=== PATIENT | female | born 1980 | race Caucasian/White ===

== ENCOUNTER 2018-12-31 18:50 | Inpatient (IN) | payer BC ==
[2018-12-31] MEDS ORDERED: SODIUM CHLORIDE 1,000 ML IV STA (19:01)
[2018-12-31] MEDS ORDERED: morphine CARPU-JECT 4 MG/1 ML DISP.SYRIN IVPUSH ONE (19:01)
--- NOTE | 2018-12-31 19:01 | PDOC ---
Rapid Medical Evaluation Chief Complaint: Pain, Acute Time Seen by Provider: 12/31/18 19:00 Medical Evaluation: Allergies Allergy/AdvReac Type Severity Reaction Status Date / Time No Known Allergies Allergy Verified 12/31/18 19:00 Vital Signs Temp Pulse Resp BP Pulse Ox 97.6 F 84 16 117/57 L 98 12/31/18 18:58 12/31/18 18:58 12/31/18 18:58 12/31/18 18:58 12/31/18 18:58 12/31/18 19:00 CC: right sided abd pain PE: RLQ tenderness Orders: labs, urine, CTAP Patient will proceed to the ER for further evaluation. Discharge Disposition - Diagnosis Abdominal pain - Discharge Dispostion Condition at time of disposition: Stable - Referrals - Patient Instructions - Post Discharge Activity
[2018-12-31] MEDS ORDERED: morphine SULFATE 4 MG/ML VIAL ONE (21:11)
[2018-12-31 21:18] LABS: BASO % 0.1 % (0-2.0); HEMATOCRIT 37.2 % (32.4-45.2); HEMOGLOBIN 12.2 GM/dL (10.7-15.3); LYMPH % 3.8 % (8-40); MCH 27.2 pg (25.7-33.7); MCHC 32.8 g/dl (32.0-36.0); MEAN PLT VOLUME 7.8 fl (7.5-11.1); MONO % 2.5 % (3.8-10.2); NEUT % 93.6 % (42.8-82.8); PLATELET COUNT 329 K/MM3 (134-434); RBC 4.48 M/mm3 (3.60-5.2); RDW 13.7 % (11.6-15.6); WHITE BLOOD COUNT 15.8 K/mm3 (4.0-10.0)
[2018-12-31 21:22] LABS: EPI CELLS 4.1 /HPF (0-5/HPF); HYALINE CASTS 1 /lpf (0-8); URINE APPEARANCE CLEAR; URINE BACTERIA 151.7 /hpf (NEGATIVE); URINE BILIRUBIN NEGATIVE (NEGATIVE); URINE COLOR YELLOW; URINE GLUCOSE (UA) NEGATIVE (NEGATIVE); URINE KETONE 2+ (NEGATIVE); URINE LEUK ESTERASE NEGATIVE (NEGATIVE); URINE NITRITE NEGATIVE (NEGATIVE); URINE PROTEIN NEGATIVE (NEGATIVE); URINE RBC 4 /hpf (0-4); URINE WBC 4 /hpf (0-5)
[2018-12-31 21:50] LABS: ALBUMIN 4.4 g/dl (3.4-5.0); BILIRUBIN,TOTAL 0.3 mg/dL (0.2-1); BLOOD UREA NITROGEN 11.2 mg/dL (7-18); CALCIUM 9.3 mg/dL (8.5-10.1); CREATININE 0.8 mg/dL (0.55-1.3); POTASSIUM 4.2 mmol/L (3.5-5.1); TOT PROT 8.6 g/dl (6.4-8.2)
[2018-12-31 21:54] LABS: INR 1.11 (0.83-1.09); PROTHROMBIN TIME (PATIENT) 13.1 SEC (9.7-13.0)
[2018-12-31 22:37] LABS: ANISOCYTOSIS 1+; MACROCYTOSIS 0; PLATELET ESTIMATE NORMAL
[2018-12-31] MEDS ORDERED: PIPERACILLIN/TAZOB 3.375 GM 3.375 GM in DEXTROSE 5%-WATER - 50 ML IVPB ONE (23:41)
[2018-12-31] MEDS ORDERED: PIPERACILLIN/TAZOB 3.375 GM 3.375 GM/50 ML BAG IVPB ONE (23:44)
[2018-12-31] MEDS ORDERED: ACETAMINOPHEN INJECTION 100 ML IVPB ONE (23:49)
[2018-12-31] MEDS ORDERED: KETOROLAC TROMETHAMINE 15 MG/ML VIAL ONE (23:50)
--- NOTE | 2018-12-31 23:55 | PDOC ---
Documentation entered by Andreea Iverson SCRIBE, acting as scribe for Cherelle Cm MD. Cherelle Cm MD: This documentation has been prepared by the Zayra francis Xhesika, SCRIBE, under my direction and personally reviewed by me in its entirety. I confirm that the documentation accurately reflects all work, treatment, procedures, and medical decision making performed by me. History of Present Illness - General Chief Complaint: Pain, Acute Stated Complaint: POSSIBLE APPENDICITIS Time Seen by Provider: 12/31/18 19:00 History Source: Patient Exam Limitations: No Limitations - History of Present Illness Initial Comments: 12/31/18 23:07 The patient is a 38 year old female with no significant PMH of who presents to the emergency department for sudden onset of right lower quadrant pain since 5pm. Patient notes her symptoms are associated with nausea and vomiting. The patient denies chest pain, shortness of breath, headache and dizziness. Denies fever, chills, cough, diarrhea and constipation. Denies dysuria, frequency, urgency and hematuria. Allergies: NKDA Past surgical history: 3 c-sections PCP: Dr. Johnson Past History - Past Medical History Allergies/Adverse Reactions: Allergies Allergy/AdvReac Type Severity Reaction Status Date / Time No Known Allergies Allergy Verified 12/31/18 19:00 COPD: No Thyroid Disease: Yes - Surgical History Cholecystectomy: No Lung Surgery: No - Immunization History Immunization Up to Date: No - Psycho Social/Smoking Cessation Hx Smoking History: Never smoked Have you smoked in the past 12 months: No Information on smoking cessation initiated: No Hx Alcohol Use: No Drug/Substance Use Hx: No Review of Systems - Review of Systems Able to Perform ROS?: Yes Comments:: 12/31/18 23:09 GENERAL/CONSTITUTIONAL: No fever or chills. No weakness. HEAD, EYES, EARS, NOSE AND THROAT: No change in vision. No ear pain or discharge. No sore throat. CARDIOVASCULAR: No chest pain or shortness of breath. RESPIRATORY: No cough, wheezing, or hemoptysis. GASTROINTESTINAL: + nausea, vomiting. no diarrhea or constipation. GENITOURINARY: No dysuria, frequency, or change in urination. MUSCULOSKELETAL: +right lower quadrant abdominal pain. No joint or muscle swelling. No neck or back pain. SKIN: No rash NEUROLOGIC: No headache, vertigo, loss of consciousness, or change in strength/ sensation. ENDOCRINE: No increased thirst. No abnormal weight change. HEMATOLOGIC/LYMPHATIC: No anemia, easy bleeding, or history of blood clots. ALLERGIC/IMMUNOLOGIC: No hives or skin allergy. *Physical Exam - Vital Signs Last Vital Signs Temp Pulse Resp BP Pulse Ox 97.6 F 84 16 117/57 L 98 12/31/18 18:58 12/31/18 18:58 12/31/18 18:58 12/31/18 18:58 12/31/18 18:58 - Physical Exam Comments: 12/31/18 23:10 GENERAL: Awake, alert, and fully oriented, in no acute distress HEAD: No signs of trauma EYES: PERRLA, EOMI, sclera anicteric, conjunctiva clear ENT: Auricles normal inspection, hearing grossly normal, nares patent, oropharynx clear without exudates. Moist mucosa NECK: Normal ROM, supple, no lymphadenopathy, JVD, or masses LUNGS: Breath sounds equal, clear to auscultation bilaterally. No wheezes, and no crackles HEART: Regular rate and rhythm, normal S1 and S2, no murmurs, rubs or gallops ABDOMEN: +RLQ TTP. Soft, nontender, normoactive bowel sounds. No guarding, no rebound. No masses EXTREMITIES: Normal range of motion, no edema. No clubbing or cyanosis. No cords, erythema, or tenderness NEUROLOGICAL: Cranial nerves II through XII grossly intact. Normal speech, normal gait SKIN: Warm, Dry, normal turgor, no rashes or lesions noted. ED Treatment Course - LABORATORY CBC & Chemistry Diagram: 12/31/18 21:09 12/31/18 21:09 - ADDITIONAL ORDERS Additional order review: Laboratory Results 12/31/18 12/31/18 12/31/18 21:09 21:09 21:09 PT with INR 13.10 H INR 1.11 H Sodium Potassium Chloride Carbon Dioxide Anion Gap BUN Creatinine Est GFR (CKD-EPI)AfAm Est GFR (CKD-EPI)NonAf Random Glucose Calcium Total Bilirubin AST ALT Alkaline Phosphatase Total Protein Albumin Lipase Urine Color Urine Appearance Urine pH Ur Specific Laporte Urine Protein Urine Glucose (UA) Urine Ketones Urine Blood Urine Nitrite Urine Bilirubin Urine Urobilinogen Ur Leukocyte Esterase Urine WBC (Auto) Urine RBC (Auto) Urine Casts (Auto) U Epithel Cells (Auto) Urine Bacteria (Auto) Urine HCG, Qual Negative Blood Type A POSITIVE Antibody Screen Negative 12/31/18 12/31/18 12/31/18 21:09 21:09 21:09 PT with INR INR Sodium 141 Potassium 4.2 Chloride 108 H Carbon Dioxide 26 Anion Gap 7 L BUN 11.2 Creatinine 0.8 Est GFR (CKD-EPI)AfAm 108.39 Est GFR (CKD-EPI)NonAf 93.52 Random Glucose 86 Calcium 9.3 Total Bilirubin 0.3 AST 8 L ALT 19 Alkaline Phosphatase 56 Total Protein 8.6 H Albumin 4.4 Lipase 98 Urine Color Yellow Urine Appearance Clear Urine pH 6.0 Ur Specific Laporte 1.014 Urine Protein Negative Urine Glucose (UA) Negative Urine Ketones 2+ H Urine Blood Trace Urine Nitrite Negative Urine Bilirubin Negative Urine Urobilinogen 1.0 Ur Leukocyte Esterase Negative Urine WBC (Auto) 4 Urine RBC (Auto) 4 Urine Casts (Auto) 1 U Epithel Cells (Auto) 4.1 Urine Bacteria (Auto) 151.7 Urine HCG, Qual Blood Type Antibody Screen 12/31/18 21:09 RBC 4.48 MCV 83.0 MCHC 32.8 RDW 13.7 MPV 7.8 Neutrophils % 93.6 H Lymphocytes % 3.8 L Monocytes % 2.5 L Eosinophils % 0.0 Basophils % 0.1 - Medications Given in the ED: ED Medications Discontinued Medications Generic Name Dose Route Start Last Admin Trade Name Freq PRN Reason Stop Dose Admin Sodium Chloride 1,000 mls @ 1,000 mls/hr 12/31/18 19:01 12/31/18 21:10 Normal Saline - IV 12/31/18 20:00 1,000 mls/hr ASDIR STA Administration Morphine Sulfate 4 mg 12/31/18 19:01 12/31/18 21:15 Morphine Injection - IVPUSH 12/31/18 19:02 4 mg ONCE ONE Administration Medical Decision Making - Medical Decision Making 12/31/18 23:45 Patient was given IV fluids and Zofran CAT scan of the abdomen pelvis with contrast shows a appendix that is fluid- filled and distended with enhancement of the wall measuring up to 11 mm in diameter there are mild adjacent inflammatory changes no free intraperitoneal air no acute vascular or osseous abnormalities the impression is an uncomplicated acute appendicitis Patient was given IV Zosyn for antibiotics PCP is Dr. Johnson 12/31/18 23:58 IMP Acute Appendicitis ADMIT med/surg 01/01/19 00:15 Dr Kilpatrick said to admit to his service Discharge - Discharge Information Problems reviewed: Yes Clinical Impression/Diagnosis: Abdominal pain Qualifiers: Abdominal location: right lower quadrant Qualified Code(s): R10.31 - Right lower quadrant pain Acute appendicitis Qualifiers: Acute appendicitis type: other Qualified Code(s): K35.890 - Other acute appendicitis without perforation or gangrene; K35.89 - Other acute appendicitis Condition: Stable - Admission Yes - Follow up/Referral Referrals: Ann Marie Johnson MD [Primary Care Provider] - - Patient Discharge Instructions - Post Discharge Activity
[2019-01-01] MEDS ORDERED: ONDANSETRON 4 MG/2 ML VIAL IVPUSH PRN ×3 (00:22→16:58)
[2019-01-01] MEDS ORDERED: MORPHINE SULFATE 2 MG/ML VIAL IVPUSH PRN (00:22)
--- NOTE | 2019-01-01 00:22 | HP ---
Admitting History and Physical - Admission Chief Complaint: abdominal pain RLQ History of Present Illness: 38 year old female oo significant PMH of who presents to the emergency department for sudden onset of right lower quadrant pain since 5pm. Patient notes her symptoms are associated with nausea and vomiting. She had a low grade fever as well and reports loss of appetitie since onset. She has 3 c- section via pfnstl, Ct shows acute appendicitis, we were called to intervene. History Source: Patient, Medical Record Limitations to Obtaining History: No Limitations - Past Surgical History Past Surgical History: Yes: (X3) - Smoking History Smoking history: Never smoked Have you smoked in the past 12 months: No - Alcohol/Substance Use Hx Alcohol Use: No History of Substance Use: reports: None - Social History ADL: Independent History of Recent Travel: Yes Home Medications - Allergies Allergies/Adverse Reactions: Allergies Allergy/AdvReac Type Severity Reaction Status Date / Time No Known Allergies Allergy Verified 12/31/18 19:00 - Home Medications Home Medications: Ambulatory Orders Levothyroxine Sodium [Levo-T] 50 mcg PO DAILY 01/01/19 Family Medical History Family History: Unremarkable Review of Systems - Review of Systems Constitutional: reports: Fever, Loss of Appetite. denies: Chills Eyes: denies: Blind Spots, Blurred Vision HENT: denies: Difficult Swallowing, Ear Discharge Neck: denies: Decreased ROM, Pain on Movement Cardiovascular: denies: Chest Pain, Palpitations Respiratory: denies: Cough, SOB Gastrointestinal: reports: Abdominal Pain. denies: Nausea, Vomiting Genitourinary: denies: Discharge, Dysuria Breasts: reports: No Symptoms Reported. denies: Pain, Skin Changes Musculoskeletal: denies: Decreased ROM, Joint Swelling, Muscle Pain Integumentary: denies: Lesions, Lump Neurological: denies: Seizure Endocrine: denies: Excessive Sweating, Unexplained Weight Gain, Unexplained Weight Loss Hematology/Lymphatic: denies: Easily Bruised, Excessive Bleeding Psychiatric: denies: Anxiety, Depression Physical Examination Vital Signs: Vital Signs Temperature 97.6 F 12/31/18 18:58 Pulse Rate 84 12/31/18 18:58 Respiratory Rate 16 12/31/18 18:58 Blood Pressure 117/57 L 12/31/18 18:58 O2 Sat by Pulse Oximetry (%) 98 10/22/19 18:58 Constitutional: Yes: Well Nourished, No Distress, Calm, Obese Eyes: Yes: Conjunctiva Clear, EOM Intact HENT: Yes: Atraumatic, Normocephalic Neck: Yes: Supple, Trachea Midline Cardiovascular: Yes: Regular Rate and Rhythm, S1, S2 Respiratory: Yes: Regular, CTA Bilaterally Gastrointestinal: Yes: Normal Bowel Sounds, Soft, Abdomen, Obese, Tenderness ( RLQ), Tenderness, Rebound. No: Tenderness, Epigastrium, Vomiting ...Rectal Exam: Yes: Deferred Renal/: No: CVA Tenderness - Left, CVA Tenderness - Right Breast(s): No: Mass, Skin Changes Musculoskeletal: No: Muscle Pain, Muscle Weakness Extremities: No: Cool, Cyanosis Edema: No Peripheral Pulses WNL: Yes Peripheral Pulses: Left Radial: 2+, Right Radial: 2+, Left Doralis Pedis: 2+, Right Dorsalis Pedis: 2+, Left Femoral: 2+, Right Femoral: 2+ Neurological: Yes: Alert, Oriented Psychiatric: Yes: Alert, Oriented Labs: CBC, BMP 12/31/18 21:09 12/31/18 21:09 Imaging - Results Cat Scan: Report Reviewed, Image Reviewed Problem List - Problems (1) Acute appendicitis Assessment/Plan: 38 yo female no significant PMH Admit for 23hour sat NPO and IVF hydration IV antibiotic ID consult Discussed with patient risks, benefits and alternatives of laparoscopic possible open appendectomy, including but not limited to bleeding, infection, injury to adjacent structures, leak or injury, intraabdominal abscess, incisional hernia, need for further procedures, ; alternatives include antibiotics, delayed or no surgery - risks of this include failure of nonoperative therapy, perforation, sepsis, recurrence, . Patient desires to proceed with operation - will take to OR for above. Informed consent signed for same. Problems reviewed: Yes Code(s): K35.80 - UNSPECIFIED ACUTE APPENDICITIS Qualifiers: Acute appendicitis type: with localized peritonitis Appendicitis gangrene presence: without gangrene Appendicitis perforation presence: without perforation Appendicitis abscess presence: without abscess Qualified Code(s) : K35.30 - Acute appendicitis with localized peritonitis, without perforation or gangrene (2) Abdominal pain in female Problems reviewed: Yes Code(s): R10.9 - UNSPECIFIED ABDOMINAL PAIN (3) Leukocytosis Problems reviewed: Yes Code(s): D72.829 - ELEVATED WHITE BLOOD CELL COUNT, UNSPECIFIED (4) RLQ abdominal pain Problems reviewed: Yes Code(s): R10.31 - RIGHT LOWER QUADRANT PAIN
--- NOTE | 2019-01-01 00:22 | OP ---
Operative Note - Note: Operative Date: 01/01/19 Pre-Operative Diagnosis: acute appendicitis Operation: laparoscopic appendectomy Findings: inflamed appendix. Post-Operative Diagnosis: Same as Pre-op Surgeon: Vel Kilpatrick Anesthesiologist/ASSOCIATE PROFESSOR PHYSICIAN: Elizabeth Goodman Anesthesia: General, Local (0.5% marcaine 10ml) Specimens Removed: appendix Estimated Blood Loss (mls): 5 Drains, Volume Out (mls): 500 (tolentino) Fluid Volume Replaced (mls): 800 Operative Report Dictated: Yes
[2019-01-01] MEDS ORDERED: LACTATED RINGERS SOLUTION 1,000 ML IV SCH ×2 (00:30→14:15)
[2019-01-01] MEDS ORDERED: PIPERACILLIN/TAZOB 3.375 GM 3.375 GM in DEXTROSE 5%-WATER - 50 ML IVPB ONE (00:45)
[2019-01-01] MEDS: LACTATED RINGERS SOLUTION 1,000 ML/1,000 ML INFUS.BAG IV SCH ×2 (01:09→09:46)
[2019-01-01 04:36] VITALS: BMI 29.9
[2019-01-01] MEDS ORDERED: PIPERACILLIN/TAZOBACTAM 2.25 GM VIAL IVPB ONE (08:47)
[2019-01-01] MEDS ORDERED: DEXTROSE 5%-WATER - 50 ML IVPB ONE ×3 (08:47→17:52)
[2019-01-01] MEDS ORDERED: PIPERACILLIN/TAZOB 2.25 GM 2.25 GM in DEXTROSE 5%-WATER - 50 ML IVPB SCH (09:00)
--- NOTE | 2019-01-01 11:54 | CON.ID ---
Consult Consult Specialty:: infectious diseases Referred by:: Reason for Consultation:: surgical prphylaxis,appendicitis - History of Present Illness Chief Complaint: abd pain History of Present Illness: 8 year old female oo significant PMH of who presents to the emergency department for sudden onset of right lower quadrant pain since 5pm. Patient notes her symptoms are associated with nausea and vomiting. She had a low grade fever as well and reports loss of appetitie since onset. She has 3 c- section via pfnstl, patient was worked up and found to [facility] appendicitis surgery saw the patient and the patient is going to the operating room for appendectomy - History Source History Provided By: Patient Limitations to Obtaining History: No Limitations - Past Surgical History Past Surgical History: Yes: (X3) - Alcohol/Substance Use Hx Alcohol Use: No History of Substance Use: reports: None - Smoking History Smoking history: Never smoked Have you smoked in the past 12 months: No - Social History ADL: Independent History of Recent Travel: Yes Home Medications - Allergies Allergies/Adverse Reactions: Allergies Allergy/AdvReac Type Severity Reaction Status Date / Time No Known Allergies Allergy Verified 12/31/18 19:00 - Home Medications Home Medications: Ambulatory Orders Amox-Tr/K Cl [Augmentin - 875Mg Tablet] 1 tab PO BID #14 tablet 01/01/19 Levothyroxine Sodium [Levo-T] 50 mcg PO DAILY 01/01/19 Oxycodone HCl/Acetaminophen [Percocet 5/325 -] 1 tab PO Q6H #40 tab MDD 4 Review of Systems - Review of Systems Constitutional: reports: No Symptoms Eyes: reports: No Symptoms HENT: reports: No Symptoms Neck: reports: No Symptoms Cardiovascular: reports: No Symptoms Respiratory: reports: No Symptoms Gastrointestinal: reports: Abdominal Pain Genitourinary: reports: No Symptoms Musculoskeletal: reports: No Symptoms Integumentary: reports: No Symptoms Neurological: reports: No Symptoms Endocrine: reports: No Symptoms Hematology/Lymphatic: reports: No Symptoms Psychiatric: reports: No Symptoms Physical Exam Vital Signs: Vital Signs Temperature 97.8 F 01/01/19 09:38 Pulse Rate 71 01/01/19 09:38 Respiratory Rate 16 01/01/19 09:38 Blood Pressure 109/66 01/01/19 09:38 O2 Sat by Pulse Oximetry (%) 100 01/01/19 09:00 Constitutional: Yes: Well Nourished, Calm, Mild Distress Eyes: Yes: Conjunctiva Clear Neck: Yes: Supple, Trachea Midline Cardiovascular: Yes: Regular Rate and Rhythm Respiratory: Yes: Regular, CTA Bilaterally Gastrointestinal: Yes: Soft, Tenderness (rlq) Musculoskeletal: Yes: WNL Extremities: Yes: WNL Neurological: Yes: Alert, Oriented Psychiatric: Yes: Alert, Oriented Labs: CBC, BMP 12/31/18 21:09 12/31/18 21:09 Imaging - Results Cat Scan: Report Reviewed, Image Reviewed Assessment/Plan Problem List - Problems (1) Acute appendicitis Problems reviewed: Yes Code(s): K35.80 - UNSPECIFIED ACUTE APPENDICITIS Qualifiers: Acute appendicitis type: with localized peritonitis Appendicitis gangrene presence: without gangrene Appendicitis perforation presence: without perforation Appendicitis abscess presence: without abscess Qualified Code(s) : K35.30 - Acute appendicitis with localized peritonitis, without perforation or gangrene (2) Abdominal pain in female Problems reviewed: Yes Code(s): R10.9 - UNSPECIFIED ABDOMINAL PAIN (3) Leukocytosis Problems reviewed: Yes Code(s): D72.829 - ELEVATED WHITE BLOOD CELL COUNT, UNSPECIFIED (4) RLQ abdominal pain Problems reviewed: Yes Code(s): R10.31 - RIGHT LOWER QUADRANT PAIN plan for surgery continue abx rest as per the team hydration
[2019-01-01] MEDS ORDERED: PIPERACILLIN/TAZOB 3.375 GM 3.375 GM in DEXTROSE 5%-WATER - 50 ML IVPB SCH ×2 (12:00→18:00)
[2019-01-01] MEDS: PIPERACILLIN/TAZOB 2.25 GM 2.25 GM in DEXTROSE 5%-WATER - 50 ML IVPB SCH (12:05)
[2019-01-01] MEDS ORDERED: PIPERACILLIN/TAZOBACTAM 3.375 GM VIAL IVPB ONE ×2 (12:08→17:51)
[2019-01-01] MEDS ORDERED: oxyCODONE HCL 5 MG TABLET PO PRN ×2 (14:13)
[2019-01-01] MEDS ORDERED: MIDAZOLAM HCL 2 MG/2 ML SINGLE DOSE VIAL ONE (14:15)
[2019-01-01] MEDS ORDERED: PROPOFOL 20 ML ONE ×2 (14:15→14:29)
[2019-01-01] MEDS ORDERED: LIDOCAINE HCL/PF 2% SDV 5ML VIAL ONE (14:15)
[2019-01-01] MEDS ORDERED: ACETAMINOPHEN 1000 MG/100 ML VIAL (NON FORMULARY) IVPB ONE ×3 (14:15→16:30)
[2019-01-01] MEDS ORDERED: ROCURONIUM BROMIDE 50 MG/5 ML SYRINGE ONE (14:15)
[2019-01-01] MEDS ORDERED: DEXAMETHASONE SOD PHOSPHATE 4 MG/1 ML VIAL ONE (14:40)
[2019-01-01] MEDS ORDERED: NEOSTIGMINE METHYLSULFATE 0.5 MG/ML - 10 ML MDV ONE (14:47)
[2019-01-01] MEDS ORDERED: GLYCOPYRROLATE 0.2 MG/1 ML VIAL ONE ×2 (14:47→14:51)
[2019-01-01] MEDS ORDERED: BUPIVACAINE HCL/PF 0.5% (5 MG/ML) 30 ML VIAL IJ ONE (14:54)
[2019-01-01] MEDS ORDERED: ACETAMINOPHEN INJECTION 100 ML IVPB ONE (16:27)
[2019-01-01] MEDS: LACTATED RINGERS SOLUTION 1,000 ML IV SCH (17:56)
[2019-01-01] MEDS: PIPERACILLIN/TAZOB 3.375 GM 3.375 GM in DEXTROSE 5%-WATER - 50 ML IVPB SCH (18:01)
[2019-01-01] MEDS: MORPHINE SULFATE 2 MG/ML VIAL IVPUSH PRN ×2 (18:06→22:35)
[2019-01-02] MEDS: LACTATED RINGERS SOLUTION 1,000 ML IV SCH (00:33)
[2019-01-02] MEDS ORDERED: PIPERACILLIN/TAZOBACTAM 3.375 GM VIAL IVPB ONE ×2 (00:39→09:02)
[2019-01-02] MEDS ORDERED: DEXTROSE 5%-WATER - 50 ML IVPB ONE ×2 (00:39→09:02)
[2019-01-02] MEDS: PIPERACILLIN/TAZOB 3.375 GM 3.375 GM in DEXTROSE 5%-WATER - 50 ML IVPB SCH ×2 (02:41→09:24)
--- NOTE | 2019-01-02 02:52 | DS ---
Physical Examination Vital Signs: Vital Signs Temperature 98.8 F 01/02/19 02:00 Pulse Rate 69 01/02/19 02:00 Respiratory Rate 15 01/02/19 02:00 Blood Pressure 104/45 L 01/02/19 02:00 O2 Sat by Pulse Oximetry (%) 100 01/01/19 21:56 Findings/Remarks: stable postoperatively, tolerating diet. voiding Constitutional: Yes: Well Nourished, No Distress, Calm Eyes: Yes: Conjunctiva Clear, EOM Intact HENT: Yes: Atraumatic, Normocephalic Neck: Yes: Supple, Trachea Midline Cardiovascular: Yes: Regular Rate and Rhythm, S1, S2 Gastrointestinal: Yes: Normal Bowel Sounds, Soft ...Rectal Exam: Yes: Deferred Wound/Incision: Yes: Clean/Dry, Well Approximated, Open to air Neurological: Yes: Alert, Oriented Psychiatric: Yes: Alert, Oriented Labs: CBC, BMP 12/31/18 21:09 12/31/18 21:09 Discharge Summary Problems reviewed: Yes Reason For Visit: ACUTE APPENDICITIS Current Active Problems Abdominal pain (Acute) Abdominal pain in female (Acute) Acute appendicitis (Acute) Leukocytosis (Acute) RLQ abdominal pain (Acute) Procedures: Principal: laparoscopic appendectomy Hospital Course: admitted for an emergency surgical procedure. uneventful surgery, stable for discharge home Condition: Improved - Instructions Diet, Activity, Other Instructions: Postoperative instructions: You had a laparoscopic appendectomy on 01/01/[address] eVl Kilpatrick of [facility]. Activity: Resume your usual activities gradually, but no heavy exertion or lifting more than 10-15 pounds for 1 month. You may shower daily starting then, just pat the incision areas dry. No bath or swimming until skin incisions have healed. Eat lightly at first, but advance to your usual diet as tolerated. Pain: For pain, you may use and alternate Tylenol (acetaminophen) 1-2 pills and/ or ibuprofen 200 mg (1-3 pills) every 6 hours each as needed; this means that you can take one OR the other at 3-hour intervals. If you are prescribed a Tylenol/narcotic combination for severe pain, use it instead of plain Tylenol as needed and switch back when your pain starts decreasing. Do not take more than 4000mg of acetaminophen in a day. Take medications as prescribed or indicated on the labeling. Follow-up: Call Dr. Kilpatrick' office at [phone] to make your postop appointment (Sunday in approximately 2 weeks after surgery). Clinic is held in the Diagnostic Center on the first floor of [facility]. Call the office if you have: * increasing pain not responsive to pain medication * fever of 101F or higher * vomiting * unusual or increasing bleeding or drainage from wounds * increasing redness or swelling at wound sites * inability to urinate Also, see your primary medical doctor within 1-2 weeks. Referrals: Ann Marie Johnson MD [Primary Care Provider] - Disposition: HOME - Home Medications Comprehensive Discharge Medication List: Ambulatory Orders Amox-Tr/K Cl [Augmentin - 875Mg Tablet] 1 tab PO BID #14 tablet 01/01/19 Levothyroxine Sodium [Levo-T] 50 mcg PO DAILY 01/01/19 Oxycodone HCl/Acetaminophen [Percocet 5/325 -] 1 tab PO Q6H #40 tab MDD 4 Prescription Drug Monitoring Program (I-STOP) results: I-STOP reviewed and no issues identified
[2019-01-02] MEDS: MORPHINE SULFATE 2 MG/ML VIAL IVPUSH PRN (05:49)
[2019-01-02 08:15] LABS: INR 1.26 (0.83-1.09); PROTHROMBIN TIME (PATIENT) 14.9 SEC (9.7-13.0)
[2019-01-02 08:17] LABS: HEMATOCRIT 30.3 % (32.4-45.2); HEMOGLOBIN 10.2 GM/dL (10.7-15.3); MCH 27.8 pg (25.7-33.7); MCHC 33.7 g/dl (32.0-36.0); MEAN CELL VOLUME 82.4 fl (80-96); PLATELET COUNT 291 K/MM3 (134-434); RBC 3.67 M/mm3 (3.60-5.2); RDW 13.8 % (11.6-15.6); WHITE BLOOD COUNT 6.9 K/mm3 (4.0-10.0)
--- NOTE | 2019-01-02 09:05 | OP ---
DATE OF OPERATION: 01/01/2019 PREOPERATIVE DIAGNOSIS: Acute appendicitis. POSTOPERATIVE DIAGNOSIS: Acute appendicitis. PROCEDURE: Laparoscopic appendectomy. ATTENDING SURGEON: Vel Kilpatrick MD SHIATSU THERAPIST: No one. ANESTHESIOLOGIST: JO Catalan ANESTHESIA TYPE: General with local. Local consisted of 0.5% Marcaine, a total of 10 mL given at the port sites. ESTIMATED BLOOD LOSS: 5 mL. INTRAVENOUS FLUID ADMINISTERED: 800 mL. URINE OUTPUT: 500 mL from the Walker which was removed postoperatively. SPECIMENS: Appendix. BRIEF FINDINGS: Patient had an inflamed appendix, taken at the termination of the tenia coli with an Endo PRASHANT stapler. INDICATION: Patient presented with acute abdominal pain in the right lower quadrant for [address] confirmed the presence of acute appendicitis. She was counseled regarding risks, benefits, and alternatives to surgical laparoscopic appendectomy, signed informed consent, was taken for the procedure. DESCRIPTION OF PROCEDURE: Patient was brought to the operating room, placed in supine position on the operating table. Lower extremities had SCDs placed to compression. Patient was induced with general anesthesia, endotracheally intubated without incident by Dr. Goodman. Patient received intravenous antibiotics prior to the start of surgery. We began first with a formal timeout, identifying the operative site and procedure with all parties in agreement. We began first with a supraumbilical approach with Cheikh entry to the abdomen. It was incised with a 15-blade scalpel, deepened and widened through the subcutaneous tissue, and this was after sterile prep and drape of the anterior abdominal wall. The anterior abdominal fascia was then elevated into the field, and blunt entry was made into the abdomen. After entering the abdomen, we were able to first place an ablative 0 Vicryl stitch across in a [id number] fashion. A 12-mm Cheikh entry port was then placed in the abdomen, and pneumoperitoneum was established to 15 mmHg. After completing the pneumoperitoneum, 2 additional operative port sites were placed in the suprapubic position and the left lower quadrant; 5-mm trocars were introduced under direct visualization after a cherise in the skin. With this in place, the appendix was immediately identified in the right lower quadrant and grasped mid body. The LigaSure device was used on the mesoappendix to take it down to the base at the cecum at the termination of the tenia coli. The mesoappendix was dissected in its entirety. At which point, the camera was re-sited to the left lower quadrant. An Endo PRASHANT size 60 mm stapler was then used to transect the base of the appendix at the cecum. There was minimal bloody effluent. The trocars were removed under direct visualization as was the appendix in a 10-mm Endo Catch bag from the umbilical port. The patient was awoken from general anesthesia after relieving the pneumoperitoneum and ablating the Cheikh entry port. The skin was then cleaned and closed using 4-0 Vicryl in interrupted fashion at all of the port sites including the Cheikh entry which was in subcuticular fashion, and Dermabond was placed as a dressing. Patient was stable throughout the surgery. All counts were correct. She was returned to recovery in stable condition, was extubated in the operating room. MD EZEKIEL Juarez/[id number]
[2019-01-02 10:57] VITALS: BP 100/70; PULSE 67; TEMP 97.8
--- NOTE | 2019-01-02 11:02 | PN ---
Progress Note, Physician History of Present Illness: doing well no complains some pain at the operated site - Current Medication List Current Medications: Active Medications Lactated Ringer's (Lactated Ringers Solution) 1,000 mls @ 125 mls/hr IV ASDIR LISSA Last Admin: 01/02/19 00:33 Dose: 125 mls/hr Piperacillin Sod/Tazobactam (Sod 3.375 gm/ Dextrose) 50 mls @ 100 mls/hr IVPB Q8H-IV LISSA; Protocol Last Admin: 01/02/19 09:24 Dose: 100 mls/hr Morphine Sulfate (Morphine Sulfate) 4 mg IVPUSH Q4H PRN PRN Reason: PAIN LEVEL 7 - 10 Last Admin: 01/02/19 05:49 Dose: 4 mg Ondansetron HCl (Zofran Injection) 4 mg IVPUSH Q6H PRN PRN Reason: NAUSEA - Objective Vital Signs: Vital Signs Temperature 97.8 F 01/02/19 10:57 Pulse Rate 67 01/02/19 10:57 Respiratory Rate 17 01/02/19 10:57 Blood Pressure 100/70 01/02/19 10:57 O2 Sat by Pulse Oximetry (%) 100 01/02/19 09:00 Constitutional: Yes: Calm, Mild Distress Cardiovascular: Yes: Regular Rate and Rhythm Respiratory: Yes: Regular, CTA Bilaterally Gastrointestinal: Yes: Soft, Hypoactive Bowel Sounds Musculoskeletal: Yes: WNL Extremities: Yes: WNL Wound/Incision: Yes: Clean/Dry Neurological: Yes: Alert, Oriented Psychiatric: Yes: Alert, Oriented Labs: CBC, BMP 01/02/19 06:45 12/31/18 21:09 INR, PTT INR 1.26 (0.83-1.09) H 01/02/19 06:45 Assessment/Plan Problem List - Problems (1) Acute appendicitis Problems reviewed: Yes Code(s): K35.80 - UNSPECIFIED ACUTE APPENDICITIS Qualifiers: Acute appendicitis type: with localized peritonitis Appendicitis gangrene presence: without gangrene Appendicitis perforation presence: without perforation Appendicitis abscess presence: without abscess Qualified Code(s) : K35.30 - Acute appendicitis with localized peritonitis, without perforation or gangrene (2) Abdominal pain in female Problems reviewed: Yes Code(s): R10.9 - UNSPECIFIED ABDOMINAL PAIN (3) Leukocytosis Problems reviewed: Yes Code(s): D72.829 - ELEVATED WHITE BLOOD CELL COUNT, UNSPECIFIED (4) RLQ abdominal pain Problems reviewed: Yes Code(s): R10.31 - RIGHT LOWER QUADRANT PAIN plan can stop all abx diet as per surgical team
--- NOTE | 2019-01-06 17:34 | PATH ---
Surgical Pathology Report Patient Name: BHARATHI MENDIOLA [facility]. Rec. #: [id number] /Age/Gender: 1980 (Age: 38) / F Account: [id number] Location: [address] [place] [address] Taken: 01/01/2019 Received: 01/02/2019 Reported: 01/06/2019 Physicians: Vel Kilpatrick M.D. Specimen(s) Received APPENDIX Clinical History Acute appendicitis Final Diagnosis APPENDIX, APPENDECTOMY: ACUTE APPENDICITIS AND PERIAPPENDICITIS. Electronically Signed Misbah Stinson M.D. Gross Description Received in formalin, labeled "appendix," is a 6.5 cm. in length vermiform appendix with a stapled margin of resection and moderate attached fat. The serosa is choi-pink and smooth. Sectioning reveals a focal possibly occluded lumen. The wall of the appendix averages 0.1 cm. in thickness. Media Account Executive sections are submitted in one cassette. /01/02/2019 saudi/01/02/2019
== END 2019-01-02 15:06 | disposition home or self-care (01) | DRG 343 ==
LOC: JER 18:50 → JERBED 01-01 00:24 → J6S 01-01 03:14
PROC: 0DTJ4ZZ Resection of Appendix, Percutaneous Endoscopic Approach (ICD-10-PCS; principal; 2019-01-01 14:45)
DX: K35.80 Unspecified acute appendicitis (principal); D72.829 Elevated white blood cell count, unspecified; R10.31 Right lower quadrant pain; E66.9 Obesity, unspecified; Z68.30 Body mass index [BMI] 30.0-30.9, adult
CPT/HCPCS: 36415; 74177-TC; 80053; 81003; 83690; 84703; 85025; 85027; 85610; 86850; 86900; 86901; 87086; 88304-TC; 94760; 97116-GP; 97161-GP; 99284-25; J0131; J7030

== ENCOUNTER 2022-07-03 04:17 | Day surgery (SDC) | payer BC ==
[2022-06-30 09:56] VITALS: BMI 31.6
[2022-07-03] MEDS ORDERED: PHENAZOPYRIDINE HCL 100 MG TABLET (FP) ONE (06:29)
[2022-07-03] MEDS ORDERED: GABAPENTIN 300 MG CAPSULE ONE (06:29)
[2022-07-03] MEDS ORDERED: ACETAMINOPHEN 1000 MG/100 ML BAG IVPB ONE (06:30)
[2022-07-03] MEDS ORDERED: GABAPENTIN 300 MG CAPSULE PO ONE (06:30)
[2022-07-03] MEDS ORDERED: PHENAZOPYRIDINE HCL 100 MG TABLET (FP) PO ONE (06:30)
[2022-07-03] MEDS ORDERED: CEFAZOLIN 2 GM in DEXTROSE 5%-WATER - 100 ML IVPB ONE (06:30)
[2022-07-03] MEDS ORDERED: ceFAZolin SODIUM 1 GM VIAL ONE (06:30)
[2022-07-03] MEDS ORDERED: KETAMINE HCL 500 MG/10 ML VIAL ONE (07:09)
[2022-07-03] MEDS ORDERED: MIDAZOLAM HCL 2 MG/2 ML SINGLE DOSE VIAL ONE (07:09)
[2022-07-03] MEDS ORDERED: PROPOFOL 40 ML ONE ×2 (07:10→08:20)
[2022-07-03] MEDS ORDERED: SUCCINYLCHOLINE CHLORIDE 200 MG/10 ML SYRINGE ONE ×2 (07:10→08:20)
[2022-07-03] MEDS ORDERED: TRANEXAMIC ACID 1000 MG/10 ML VIAL IVPUSH ONE (07:30)
[2022-07-03] MEDS ORDERED: ACETAMINOPHEN INJECTION 100 ML IVPB ONE (08:00)
[2022-07-03] MEDS ORDERED: ceFAZolin SODIUM 1 GM VIAL IVPB ONE (08:03)
[2022-07-03] MEDS ORDERED: ROCURONIUM BROMIDE 50 MG/5 ML SYRINGE ONE (08:20)
[2022-07-03] MEDS ORDERED: BISACODYL 5 MG TABLET.DR (FP) PO PRN (09:58)
[2022-07-03] MEDS ORDERED: ONDANSETRON 4 MG/2 ML VIAL IVPUSH PRN (09:58)
[2022-07-03] MEDS ORDERED: DOCUSATE SODIUM 100 MG CAPSULE (FP) PO PRN (09:58)
[2022-07-03] MEDS ORDERED: oxyCODONE HCL 5 MG TABLET PO PRN ×2 (09:58)
[2022-07-03] MEDS ORDERED: SIMETHICONE 80 MG TAB.CHEW (FP) PO PRN (09:58)
[2022-07-03] MEDS: CEFAZOLIN 1 GM in DEXTROSE 5%-WATER - 50 ML IVPB SCH ×2 (17:07→23:05)
[2022-07-03] MEDS: ACETAMINOPHEN 325 MG TABLET (FP) PO SCH ×2 (18:00→23:08)
[2022-07-03 18:32] LABS: HEMATOCRIT 29.5 % (32.4-45.2); MCH 24.1 pg (25.7-33.7); MCHC 34.1 g/dl (32.0-36.0); MEAN CELL VOLUME 70.9 fl (80-96); MEAN PLT VOLUME 8.6 fl (7.5-11.1); PLATELET COUNT 251 10^3/uL (134-434); RBC 4.16 M/mm3 (3.60-5.2); RDW 15.7 % (11.6-15.6); WHITE BLOOD COUNT 8.8 K/mm3 (4.0-10.0)
[2022-07-03 18:45] LABS: CALCIUM 8.5 mg/dL (8.5-10.1)
[2022-07-03 18:46] LABS: BLOOD UREA NITROGEN 12.9 mg/dL (7-18)
[2022-07-03 18:49] LABS: CREATININE 0.8 mg/dL (0.55-1.3)
[2022-07-03] MEDS: IBUPROFEN 800 MG/8 ML IJ IVPB SCH (19:22)
[2022-07-03] MEDS: SODIUM CHLORIDE 1,000 ML IV SCH ×2 (23:00)
[2022-07-04] MEDS: IBUPROFEN 800 MG/8 ML IJ IVPB SCH ×2 (03:24→09:08)
[2022-07-04] MEDS: ACETAMINOPHEN 325 MG TABLET (FP) PO SCH ×2 (05:52→11:59)
[2022-07-04] MEDS ORDERED: LEVOTHYROXINE NA 25 MCG TABLET (FP) PO SCH (07:00)
[2022-07-04 08:26] VITALS: RESP 16
[2022-07-04 08:28] VITALS: BP 98/54; PULSE 79; TEMP 98.9
[2022-07-04 09:02] LABS: HEMATOCRIT 27.3 % (32.4-45.2); HEMOGLOBIN 9.3 GM/dL (10.7-15.3); MCH 24.4 pg (25.7-33.7); MCHC 34.1 g/dl (32.0-36.0); MEAN CELL VOLUME 71.5 fl (80-96); MEAN PLT VOLUME 8.1 fl (7.5-11.1); PLATELET COUNT 228 10^3/uL (134-434); RBC 3.81 M/mm3 (3.60-5.2); RDW 15.8 % (11.6-15.6); WHITE BLOOD COUNT 6.6 K/mm3 (4.0-10.0)
[2022-07-04 09:34] LABS: BLOOD UREA NITROGEN 9.4 mg/dL (7-18); CALCIUM 7.9 mg/dL (8.5-10.1)
[2022-07-04 09:38] LABS: CREATININE 0.8 mg/dL (0.55-1.3)
[2022-07-04] MEDS ORDERED: ENOXAPARIN NA (PORCINE) 40 MG/0.4 ML DISP.SYRIN SQ SCH (10:00)
== END 2022-07-04 14:03 | disposition home or self-care (01) ==
LOC: JASUSAT 04:17 → J3W 13:55 → JASUSAT 07-04 14:03
PROVIDERS: ATTEND Obstetrics & Gynecology
PROC: 0UT9FZL Resection of Uterus, Supracervical, Via Natural or Artificial Opening With Percutaneous Endoscopic Assistance (ICD-10-PCS; 2022-07-03)
PROC: 8E0W8CZ Robotic Assisted Procedure of Trunk Region, Via Natural or Artificial Opening Endoscopic (ICD-10-PCS; 2022-07-03)
PROC: 0UB08ZZ Excision of Right Ovary, Via Natural or Artificial Opening Endoscopic (ICD-10-PCS; 2022-07-03)
PROC: 0UT94ZZ Resection of Uterus, Percutaneous Endoscopic Approach (ICD-10-PCS; principal; 2022-07-03 07:30)
PROC: 0DNU4ZZ Release Omentum, Percutaneous Endoscopic Approach (ICD-10-PCS; 2022-07-03 07:30)
DX: N92.0 Excessive and frequent menstruation with regular cycle (principal); N84.0 Polyp of corpus uteri; N80.03 Adenomyosis of the uterus; N73.6 Female pelvic peritoneal adhesions (postinfective); N83.291 Other ovarian cyst, right side
CPT/HCPCS: 58552; 58662; S2900; 36415; 80048; 81025; 85027; 86850; 86900; 86901; 88302-TC; 88305-TC; 88307-TC; 94010; 94760